=== PATIENT | female | born 1960 | race Hispanic/Latino ===

== ENCOUNTER 2017-08-15 22:38 | Emergency (ER) | payer SELFPAY ==
[~2017-08-15] VITALS: Ht 160 cm; Wt 73.9 kg
[~2017-08-15 22:38] MED LIST: HYDROXYZINE HCL50 M1 PO; MEDROL4 M2 PO
--- NOTE | 2017-08-16 00:13 | ED GENERAL ADULT ---
History of Present Illness General Chief Complaint: Allergy Symptoms Stated Complaint: ?ALLERGY, RASH ON ARM Source: patient Exam Limitations: no limitations Vital Signs & Intake/Output Vital Signs & Intake/Output Vital Signs Date Time Temp Pulse Resp B/P B/P Pulse O2 O2 Flow FiO2 Mean Ox Delivery Rate 08/15 2257 98.4 69 18 124/72 97 Room Air ED Intake and Output 08/16 0000 08/15 1200 Intake Total Output Total Balance Patient 163 lb Weight Weight Reported by Patient Measurement Method Allergies Coded Allergies: No Known Allergies (08/05/17) Reconcile Medications Epinephrine (Epipen) 0.3 MG/0.3 ML AUTO.INJCT 1 DOSE IM ONCE PRN anaphylaxis Hydroxyzine Hydrochloride (Atarax) 50 MG TAB 1 TAB PO TID ITCHINGQ Methylprednisolone. (Medrol) 4 MG TAB.DS.PK 1 DP PO AD CONTATC DERMATITIS 6 on day 1 then reduce by one tablet daily until gone Triage Note: PT FROM HOME C/O RASH TO PTS BILATERAL ARMS AND TRUNK. PT THOUGHT IT WAS POISON BREANNA D/T LANDSCAPING OUTSIDE 10 DAYS PRIOR. PT WAS SEEN AT PCP AND GIVEN SOME MEDICATION WITH MINIMAL RELIEF. PT STATES SHE IS UNSURE IF IT IS FOOD ALLERGY RELATED BECAUSE SHE NOTICES THE RASH TO ITCH MORE AFTER EATING CERTAIN FOODS. PTS A&0X3, VSS. Triage Nurses Notes Reviewed? yes Onset: Gradual Duration: day(s): Timing: intermittent HPI: 56-year-old female with no known past medical history presenting with intermittent rashes to her bilateral arms and trunk over the past week. Reports that she will intermittently get a periodic erythematous rash that spontaneously self resolves after several hours. Has not been able to identify any triggers. States that it has occurred after eating some foods, but the pattern has not been consistent. Has tried a Medrol Dosepak and Benadryl without relief. Denies any known allergies. Denies fevers, dysphasia, lips/tongue swelling, chest pain, shortness of breath, abdominal pain, nausea, vomiting, diarrhea. Patient currently has no rash at this time. Past History Travel History Traveled to [place] past 21 day No Medical History Any Pertinent Medical History? none Neurological: NONE EENT: NONE Cardiovascular: NONE Respiratory: NONE Gastrointestinal: NONE Hepatic: NONE Renal: NONE Musculoskeletal: NONE Psychiatric: NONE Endocrine: NONE Blood Disorders: NONE Cancer(s): NONE NETWORK LEAD/Reproductive: NONE Surgical History Surgical History: non-contributory Psychosocial History What is your primary language Bel[place]ian Tobacco Use: Never used Family History Hx Contributory? No Review of Systems Review of Systems Constitutional: Reports: no symptoms. EENTM: Reports: no symptoms. Respiratory: Reports: no symptoms. Cardiovascular: Reports: no symptoms. GI: Reports: no symptoms. Genitourinary: Reports: no symptoms. Musculoskeletal: Reports: no symptoms. Skin: Reports: see HPI. Neurological/Psychological: Reports: no symptoms. Hematologic/Endocrine: Reports: no symptoms. Immunologic/Allergic: Reports: no symptoms. Physical Exam Physical Exam General Appearance: well developed/nourished, no apparent distress, alert, awake , comfortable Head: atraumatic, normal appearance Eyes: Bilateral: normal appearance. Ears, Nose, Throat: normal ENT inspection Neck: normal inspection Respiratory: normal breath sounds, lungs clear Cardiovascular: regular rate/rhythm Gastrointestinal: soft, non-tender Back: normal inspection Extremities: normal inspection Neurologic/Psych: awake, alert, oriented x 3, normal gait, normal mood/affect Skin: intact, normal color, warm/dry, no rashes Core Measures ACS in differential dx? No CVA/TIA Diagnosis: No Sepsis Present: No Sepsis Focused Exam Completed? No Progress Differential Diagnoses I considered the following diagnoses in my evaluation of the patient: [Allergic reaction versus viral exanthem versus autoimmune versus contact dermatitis, low concern for anaphylaxis] Plan of Care: No clear etiology identified for the patient's intermittent rashes. Given Rx EpiPen to have at home. Instructed to follow up with primary care provider for allergy testing. Given strict return precautions. Initial ED EKG: none Departure Departure Disposition: HOME OR SELF CARE Condition: Stable Clinical Impression Primary Impression: Rash Referrals: Unknown (PCP/Family) Additional Instructions: Follow up with a primary care provider to establish care and for outpatient allergy testing. Return to the emergency department for any new or worsening symptoms. Departure Forms: Customer Survey General Discharge Information Prescriptions: Current Visit Scripts Epinephrine (Epipen) 1 DOSE IM ONCE PRN anaphylaxis #1 INJ Critical Care Note Critical Care Note Critical Care Time: non-applicable
[2017-08-16] MEDS ORDERED: EPIPEN0.3 MG/0.1 IM (00:14)
[2017-08-16 00:24] VITALS: BP 126/70
== END 2017-08-16 00:24 ==
LOC: ERH 22:38
DX: R21 Rash and other nonspecific skin eruption (principal)